=== PATIENT | female | born 1955 | race Native Hawaiian/Other Pacific Islander ===

== ENCOUNTER 2020-01-21 20:17 | Emergency (ER) | payer BC, OTHER ==
[~2020-01-21] VITALS: Ht 157.5 cm; Wt 79.4 kg
[2020-01-21] MEDS ORDERED: IOHEXOL 350 MG/ML 100ML IJ ONE (21:29)
[2020-01-21] MEDS ORDERED: ASPirin-EC 81 mg tab PO ONE (21:30)
[2020-01-21] MEDS ORDERED: CLOPIDOGREL BISULFATE 75 MG TAB PO ONE (21:30)
[2020-01-21 22:24] LABS: Hematocrit 34.5 % (36.0-46.0); Hemoglobin 11.4 g/dL (12.2-16.2); Mean Corpuscular Hemoglobin 29.5 pg (28.0-32.0); Mean Corpuscular Hgb Conc. 32.9 g/dL (32.0-36.0); Mean Corpuscular Volume 89.5 fL (80.0-100.0); Platelet Count (auto) 336 10^3/uL (140-450); Red Blood Cells 3.86 10^6/uL (4.0-5.20); Red Cell Distribution Width 14.2 % (11.8-14.3); White Blood Cell 2.5 10^3/uL (4.4-10.8)
[2020-01-21 22:37] LABS: INR 1.03 (0.9-1.15); Partial Thromboplastin Time 34.6 sec (23.0-31.2)
[2020-01-21 22:39] LABS: Albumin 3.4 g/dL (3.4-5.0); Calcium 8.1 mg/dL (8.5-10.1); Potassium 3.9 mmol/L (3.5-5.1)
[2020-01-21 22:40] LABS: Basophils % (manual) 0 (0.0-2.0); Blast Cells 0; Eosinophils % (manual) 0 (0-7); Metamyelocytes % 0; Myelocytes % 0; Promyelocytes % 0; Reactive Lymphocytes 0
[2020-01-21 22:41] LABS: Bilirubin, Total 0.5 mg/dL (0.2-1.0); Total Protein 7.8 g/dL (6.4-8.2)
[2020-01-21 23:04] LABS: Band Neutrophils % (manual) 2; Lymphocytes % (manual) 44 (10.0-50.0)
[2020-01-21 23:05] LABS: Monocytes % (manual) 17 (0-12)
[2020-01-23 02:00] VITALS: BP 116/63
== END 2020-01-23 02:55 | disposition left against medical advice (07) ==
LOC: ER 20:20
DX: I49.3 Ventricular premature depolarization (principal); R20.2 Paresthesia of skin
CPT/HCPCS: 36415; 80053; 85007; 85027; 85610; 85730; 93926